=== PATIENT | male | born 1980 | race Caucasian/White ===

== ENCOUNTER 2021-01-29 14:34 | Inpatient (IN) | payer MEDICAID, OTHER ==
[~2021-01-29] VITALS: Ht 185.4 cm; Wt 228.0 kg
[~2021-01-29 14:34] MED LIST: AMIO200T6 PO; DILT60TA36 PO; FURO-151 PO; HYDR-4172 PO; LISI-809 PO; METF-444 PO
[2021-01-29] MEDS ORDERED: SODIUM CHLORIDE 0.9% 1,000 ML IV ONE (14:45)
[2021-01-29] MEDS ORDERED: METO-408 PO (15:26)
[2021-01-29 15:31] LABS: GLUCOSE,POINT OF CARE 459 MG/DL (70-110)
[2021-01-29 15:43] LABS: HEMATOCRIT 53.7 % (41-53); HEMOGLOBIN 17.7 g/dL (13.5-17.5); MEAN CORPUSCULAR HEMOGLOBIN 31.7 pg (26.0-34.0); MEAN CORPUSCULAR VOLUME 96 fL (80-100); PLATELET COUNT (AUTO) 165 K/uL (150-450); RED BLOOD CELL COUNT(AUTO) 5.59 MIL/uL (4.50-5.90); RED CELL DISTRIBUTION WIDTH 14.6 % (11.5-14.5)
[2021-01-29] MEDS ORDERED: VANCOMYCIN HCL 1 GM/D5% WATER 200 ML IV ONE (15:45)
[2021-01-29 16:15] LABS: LACTIC ACID 3.5 mmol/L (0.4-2.0)
[2021-01-29 16:16] LABS: ALBUMIN 3.1 g/dL (3.4-5.0); BILIRUBIN,TOTAL 4.8 mg/dL (0.1-1.0); CALCIUM, TOTAL 9.1 mg/dL (8.8-10.5); CREATININE 1.99 mg/dL (0.60-1.30); POTASSIUM 5.3 mmol/L (3.5-5.1); TOTAL PROTEIN, SERUM 7.8 g/dL (6.4-8.2)
[2021-01-29 16:18] LABS: BAND NEUTROPHILS % (MANUAL) 13 % (0-5); LYMPHOCYTES % (MANUAL) 6 % (22-44); MONOCYTES % (MANUAL) 7 % (2-9)
[2021-01-29 16:19] LABS: SEGMENTED NEUTROPHILS % 74 % (40-70)
[2021-01-29 16:20] LABS: ABG A-A DIFF O2 160.3 mmHg (10-20.0); ABG HCO3 22.4 mmol/L (22.0-26.0); ABG METHEMOGLOBIN 0.4 % (0.0-1.5); ABG OXYGEN CONTENT 25.3 mL/dL (15.0-23.0); ABG OXYGEN SATURATION 95.2 % (95.0-98.0); ABG OXYHEMOGLOBIN 94.8 % (94.0-100.0); ABG PCO2 40 mmHg (35-45); PO2, ARTERIAL BG 79.1 mmHg (88.0-96.0); SITE, BLOOD GAS RT RADIAL; SOURCE, BLOOD GAS ARTERIAL; TEMPERATURE, FAHRENHEIT, BG 99.3 FAHREN (96.0-98.6)
[2021-01-29 16:21] LABS: O2 DEVICE,BLOOD GAS CANNULA (ROOM AIR)
[2021-01-29 17:11] LABS: COVID AG,FIA SOURCE NASOPHARYNGEAL
[2021-01-29 17:39] LABS: APPEARANCE,URINE CLOUDY (CLEAR); GLUCOSE, URINE (UA) >=1000 mg/dL (NEGATIVE); KETONES,URINE TRACE mg/dL (NEGATIVE); LEUKOCYTE ESTERASE ,URINE NEGATIVE (NEGATIVE); NITRATE,URINE NEGATIVE (NEGATIVE); OCCULT BLOOD,URINE MODERATE (NEGATIVE); PH,URINE 5.5 (5.0-8.0); PROTEIN,URINE SEE CONFIRM (NEGATIVE); UROBILINOGEN,URINE 0.2 mg/dL (<=1.0)
[2021-01-29 17:45] LABS: BILIRUBIN,URINE PRELIM. POSITIVE (NEGATIVE)
[2021-01-29] MEDS ORDERED: AMIODARONE HCL 50 MG/ML 3 ML VIAL IVP ONE (17:45)
[2021-01-29 17:47] LABS: BACTERIA,URINE Few /HPF (None Seen); SQUAMOUS EPITHELIAL CELL,UR Moderate /LPF (None Seen); SULFOSALICYLIC ACID,URINE 2+ (Negative); WBC,URINE 0-2 /HPF (0-5)
[2021-01-29] MEDS ORDERED: DEXTROSE 5% IV ONE (18:00)
[2021-01-29] MEDS ORDERED: AMIODARONE HCL 150 MG in DEXTROSE 5%-WATER 97 ML IV ONE (18:00)
[2021-01-29] MEDS ORDERED: AMIODARONE HCL 360 MG in DEXTROSE 5%-WATER 242.8 ML IV ONE (18:00)
[2021-01-29] MEDS ORDERED: AMIODARONE HCL IV ONE (18:00)
[2021-01-29] MEDS ORDERED: WATER IV ONE (18:00)
[2021-01-29] MEDS ORDERED: DIGOXIN 250 MCG/ML 2 ML AMP IVP ONE ×2 (18:15→19:45)
[2021-01-29] MEDS ORDERED: CefTRIAXone 1 GM/DEXTROSE 50 ML IV ONE (19:45)
[2021-01-29] MEDS ORDERED: ONDANSETRON HCL 4 MG/2 ML VIAL IVP PRN ×2 (20:00→21:00)
[2021-01-29] MEDS ORDERED: ACETAMINOPHEN 325 MG TABLET PO PRN (20:00)
[2021-01-29] MEDS ORDERED: 0.9% SODIUM CHLORIDE 10 ML SYRINGE IVP PRN (20:00)
[2021-01-29] MEDS ORDERED: VANCOMYCIN HCL 1.5 GM in DEXTROSE 5%-WATER 250 ML IV ONE (22:00)
[2021-01-29] MEDS ORDERED: MAGNESIUM SULFATE 2 GM/WATER 50 ML IV PRN (22:15)
[2021-01-29] MEDS ORDERED: MAGNESIUM SULFATE 4 GM/WATER 100 ML IV PRN (22:15)
[2021-01-29] MEDS ORDERED: MAGNESIUM OXIDE 400 MG TABLET PO PRN (22:15)
[2021-01-29] MEDS ORDERED: DEXTROSE 50%-WATER 25 GM/50 ML SYRINGE IVP PRN (22:30)
[2021-01-29 22:37] LABS: THYROID STIMULATING HORMONE 2.93 uIU/mL (0.36-3.74)
[2021-01-29] MEDS: METOPROLOL TARTRATE 5 MG/5 ML VIAL IVP SCH (22:38)
[2021-01-29] MEDS: INSULIN LISPRO 100 UNITS/ML SQ PRN (22:55)
[2021-01-29 23:03] LABS: GLUCOSE,POINT OF CARE 436 MG/DL (70-110)
[2021-01-30] MEDS ORDERED: AMIODARONE HCL 540 MG in DEXTROSE 5%-WATER 239.2 ML IV ONE ×2
[2021-01-30] MEDS: PIPERACILLIN/TAZO 3.375 GM/D5W 50 ML IV SCH ×2 (03:10→10:37)
[2021-01-30] MEDS ORDERED: INSULIN REGULAR, HUMAN 100 UNITS/ML SQ ONE (04:15)
[2021-01-30] MEDS ORDERED: INSULIN GLARGINE,HUM.REC.ANLOG 100 UNITS/ML SQ ONE (04:15)
[2021-01-30 04:44] LABS: GLUCOSE,POINT OF CARE 426 MG/DL (70-110)
[2021-01-30 05:40] LABS: BASOPHILS % (AUTO) 0.3 % (0.0-2.0); EOSINOPHILS % (AUTO) 0 % (1.0-6.0); HEMATOCRIT 52.8 % (41-53); HEMOGLOBIN 17.4 g/dL (13.5-17.5); LYMPHOCYTES # (AUTO) 0.5 K/uL (1.0-4.8); LYMPHOCYTES % (AUTO) 4.7 % (22.0-44.0); MEAN CORPUSCULAR HEMOGLOBIN 31.8 pg (26.0-34.0); MEAN CORPUSCULAR VOLUME 96 fL (80-100); MONOCYTES # (AUTO) 0.5 K/uL (0.1-1.0); MONOCYTES % (AUTO) 5.7 % (2.0-9.0); NEUTROPHILS # (AUTO) 8.5 K/uL (1.8-7.7); PLATELET COUNT (AUTO) 159 K/uL (150-450); RED BLOOD CELL COUNT(AUTO) 5.48 MIL/uL (4.50-5.90); RED CELL DISTRIBUTION WIDTH 14.5 % (11.5-14.5)
[2021-01-30 05:44] LABS: NEUTROPHILS % (AUTO) 89.3 % (40.0-70.0)
[2021-01-30 05:58] LABS: CALCIUM, TOTAL 9.1 mg/dL (8.8-10.5); CREATININE 1.67 mg/dL (0.60-1.30); DIGOXIN 0.74 ng/mL (0.90-2.00); MAGNESIUM 1.6 mg/dL (1.80-2.40); POTASSIUM 4.7 mmol/L (3.5-5.1)
[2021-01-30] MEDS: METOPROLOL TARTRATE 5 MG/5 ML VIAL IVP SCH ×4 (06:23→23:56)
[2021-01-30] MEDS: INSULIN LISPRO 100 UNITS/ML SQ PRN ×4 (06:40→23:00)
[2021-01-30 06:46] LABS: GLUCOSE,POINT OF CARE 390 MG/DL (70-110)
[2021-01-30] MEDS ORDERED: HEPARIN SODIUM,PORCINE 5,000 UNITS/ML VIAL IVP ONE (07:15)
[2021-01-30] MEDS ORDERED: HEPARIN SODIUM,PORCINE 5,000 UNITS/ML VIAL IVP PRN ×2 (07:15)
[2021-01-30] MEDS ORDERED: XAREL CHEW (07:17)
[2021-01-30] MEDS: VANCOMYCIN HCL 1.5 GM in DEXTROSE 5%-WATER 250 ML IV SCH ×2 (08:26→19:32)
[2021-01-30 10:36] LABS: INR 1.2 (0.9-1.1); PROTHROMBIN TIME 12.6 SEC (9.4-11.6)
[2021-01-30] MEDS: HEPARIN SODIUM 25000 UNITS/D5W 250 ML IV PRN (11:30)
[2021-01-30 11:53] LABS: GLUCOSE,POINT OF CARE 399 MG/DL (70-110)
[2021-01-30] MEDS: DILTIAZEM HCL 60 MG SR CAPSULE PO SCH ×2 (12:45→20:58)
[2021-01-30] MEDS ORDERED: RIVA20TA PO (12:56)
[2021-01-30] MEDS ORDERED: DIGOXIN 250 MCG/ML 2 ML AMP IVP ONE (13:00)
[2021-01-30] MEDS ORDERED: DILTIAZEM HCL 5 MG/ML 5 ML VIAL IVP ONE (13:00)
[2021-01-30] MEDS: FUROSEMIDE 40 MG/4 ML VIAL IVP SCH ×2 (14:21→20:59)
[2021-01-30] MEDS ORDERED: *CLINICAL-MEROPENEM DOSING CLINICAL ONE (14:45)
[2021-01-30] MEDS: MEROPENEM 1 GM in SODIUM CHLORIDE 0.9% 100 ML IV SCH ×2 (15:31→23:14)
[2021-01-30] MEDS: CLINDAMYCIN 900 MG/D5% WATER 50 ML IV SCH ×2 (16:31→23:56)
[2021-01-30 18:14] LABS: GLUCOSE,POINT OF CARE 346 MG/DL (70-110)
[2021-01-30] MEDS: AMIODARONE HCL 750 MG in DEXTROSE 5%-WATER 485 ML IV SCH (18:53)
[2021-01-30 21:00] VITALS: BP 139/79
[2021-01-30 21:08] LABS: C-REACTIVE PROTEIN QUANT 30.86 mg/dL (0.00-0.30)
[2021-01-30] MEDS: INSULIN GLARGINE,HUM.REC.ANLOG 100 UNITS/ML SQ SCH (22:57)
[2021-01-30 23:00] VITALS: BP 150/90
[2021-01-30 23:08] LABS: GLUCOSE,POINT OF CARE 370 MG/DL (70-110)
[2021-01-30 23:32] VITALS: BP 146/92
[2021-01-31] VITALS (15 sets, daily range): BP systolic 121–158; BP diastolic 68–108
[2021-01-31 04:23] LABS: BASOPHILS % (AUTO) 0.3 % (0.0-2.0); EOSINOPHILS % (AUTO) 0.2 % (1.0-6.0); HEMATOCRIT 52.3 % (41-53); HEMOGLOBIN 17.2 g/dL (13.5-17.5); LYMPHOCYTES # (AUTO) 0.5 K/uL (1.0-4.8); LYMPHOCYTES % (AUTO) 5.2 % (22.0-44.0); MEAN CORPUSCULAR HEMOGLOBIN 31.4 pg (26.0-34.0); MEAN CORPUSCULAR HGB CONC 32.8 G/dL (31.0-37.0); MEAN CORPUSCULAR VOLUME 96 fL (80-100); MONOCYTES # (AUTO) 0.7 K/uL (0.1-1.0); MONOCYTES % (AUTO) 7.2 % (2.0-9.0); NEUTROPHILS # (AUTO) 7.9 K/uL (1.8-7.7); NEUTROPHILS % (AUTO) 87.1 % (40.0-70.0); PLATELET COUNT (AUTO) 162 K/uL (150-450); RED BLOOD CELL COUNT(AUTO) 5.46 MIL/uL (4.50-5.90); RED CELL DISTRIBUTION WIDTH 14.2 % (11.5-14.5)
[2021-01-31 04:52] LABS: ALBUMIN 2.6 g/dL (3.4-5.0); BILIRUBIN,TOTAL 2.9 mg/dL (0.1-1.0); CALCIUM, TOTAL 9.2 mg/dL (8.8-10.5); CREATININE 1.51 mg/dL (0.60-1.30); MAGNESIUM 2.1 mg/dL (1.80-2.40); POTASSIUM 4.4 mmol/L (3.5-5.1); TOTAL PROTEIN, SERUM 7.5 g/dL (6.4-8.2); VANCOMYCIN,RANDOM 21.4 mcg/mL (25.0-50.0)
[2021-01-31 05:23] LABS: C-REACTIVE PROTEIN QUANT 24.94 mg/dL (0.00-0.30)
[2021-01-31] MEDS: METOPROLOL TARTRATE 5 MG/5 ML VIAL IVP SCH ×3 (05:59→18:21)
[2021-01-31] MEDS: INSULIN LISPRO 100 UNITS/ML SQ PRN ×3 (05:59→20:23)
[2021-01-31] MEDS: MEROPENEM 1 GM in SODIUM CHLORIDE 0.9% 100 ML IV SCH ×3 (06:21→23:02)
[2021-01-31 07:37] LABS: GLUCOSE,POINT OF CARE 370 MG/DL (70-110)
[2021-01-31] MEDS: CLINDAMYCIN 900 MG/D5% WATER 50 ML IV SCH ×2 (08:11→17:01)
[2021-01-31] MEDS ORDERED: ADENOSINE 3 MG/ML 2 ML VIAL IVP ONE (08:15)
[2021-01-31] MEDS ORDERED: DIGOXIN 250 MCG/ML 2 ML AMP IVP ONE (08:15)
[2021-01-31] MEDS: DILTIAZEM HCL 60 MG SR CAPSULE PO SCH ×2 (09:00→20:21)
[2021-01-31] MEDS ORDERED: DILTIAZEM HCL 5 MG/ML 5 ML VIAL IVP ONE (10:15)
[2021-01-31] MEDS: FUROSEMIDE 40 MG/4 ML VIAL IVP SCH ×2 (10:49→20:21)
[2021-01-31] MEDS: INSULIN GLARGINE,HUM.REC.ANLOG 100 UNITS/ML SQ SCH ×2 (10:54→20:22)
[2021-01-31 11:55] LABS: GLUCOSE,POINT OF CARE 365 MG/DL (70-110)
[2021-01-31] MEDS ORDERED: DILTIAZEM HCL 125 MG in DEXTROSE 5%-WATER 100 ML IV PRN (12:00)
[2021-01-31] MEDS ORDERED: SODIUM CHLORIDE 0.9% 250 ML IV ONE (12:40)
[2021-01-31] MEDS: VANCOMYCIN HCL 1.5 GM in DEXTROSE 5%-WATER 250 ML IV SCH ×2 (12:44→20:20)
[2021-01-31] MEDS ORDERED: AMIODARONE HCL 50 MG in DEXTROSE 5%-WATER 97 ML IV ONE (14:30)
[2021-01-31] MEDS ORDERED: MORPHINE SULFATE 2 MG/ML SYRINGE IVP ONE (14:45)
[2021-01-31] MEDS: SOTALOL HCL 80 MG TABLET PO SCH ×2 (14:51→20:20)
[2021-01-31 15:33] LABS: CREATININE,URINE RANDOM 29.3 mg/dL (30.0-125.0)
[2021-01-31] MEDS ORDERED: DEXTROSE 50%-WATER 25 GM/50 ML SYRINGE IVP PRN (15:45)
[2021-01-31] MEDS: AMIODARONE HCL 750 MG in DEXTROSE 5%-WATER 485 ML IV SCH (18:21)
[2021-01-31] MEDS: HEPARIN SODIUM 25000 UNITS/D5W 250 ML IV PRN (22:33)
[2021-02-01] VITALS (9 sets, daily range): BP systolic 110–146; BP diastolic 20–116
[2021-02-01] MEDS: METOPROLOL TARTRATE 5 MG/5 ML VIAL IVP SCH ×2 (00:52→06:15)
[2021-02-01] MEDS: CLINDAMYCIN 900 MG/D5% WATER 50 ML IV SCH ×3 (00:53→16:02)
[2021-02-01 00:54] LABS: GLUCOSE,POINT OF CARE 397 MG/DL (70-110)
[2021-02-01] MEDS: ACETAMINOPHEN 325 MG TABLET PO PRN (01:08)
[2021-02-01] MEDS: MORPHINE SULFATE 4 MG/ML SYRINGE IVP PRN ×3 (02:48→13:03)
[2021-02-01 03:09] LABS: GLUCOSE,POINT OF CARE 388 MG/DL (70-110)
[2021-02-01 06:13] LABS: BASOPHILS % (AUTO) 0.7 % (0.0-2.0); EOSINOPHILS % (AUTO) 0.2 % (1.0-6.0); HEMATOCRIT 50.5 % (41-53); HEMOGLOBIN 16.8 g/dL (13.5-17.5); LYMPHOCYTES # (AUTO) 0.5 K/uL (1.0-4.8); MEAN CORPUSCULAR HEMOGLOBIN 31.8 pg (26.0-34.0); MEAN CORPUSCULAR HGB CONC 33.3 G/dL (31.0-37.0); MEAN CORPUSCULAR VOLUME 96 fL (80-100); MONOCYTES % (AUTO) 8.8 % (2.0-9.0); NEUTROPHILS # (AUTO) 9.7 K/uL (1.8-7.7); PLATELET COUNT (AUTO) 185 K/uL (150-450); RED BLOOD CELL COUNT(AUTO) 5.29 MIL/uL (4.50-5.90); RED CELL DISTRIBUTION WIDTH 14.4 % (11.5-14.5)
[2021-02-01] MEDS: MEROPENEM 1 GM in SODIUM CHLORIDE 0.9% 100 ML IV SCH ×3 (06:14→23:40)
[2021-02-01] MEDS: HEPARIN SODIUM 25000 UNITS/D5W 250 ML IV PRN ×2 (06:15→16:53)
[2021-02-01] MEDS: INSULIN LISPRO 100 UNITS/ML SQ PRN ×4 (06:16→20:54)
[2021-02-01 06:39] LABS: ALBUMIN 2.2 g/dL (3.4-5.0); BILIRUBIN,TOTAL 2.9 mg/dL (0.1-1.0); CALCIUM, TOTAL 9.1 mg/dL (8.8-10.5); CREATININE 1.38 mg/dL (0.60-1.30); MAGNESIUM 2.2 mg/dL (1.80-2.40); POTASSIUM 4.2 mmol/L (3.5-5.1); TOTAL PROTEIN, SERUM 7.4 g/dL (6.4-8.2)
[2021-02-01 06:53] LABS: GLUCOSE,POINT OF CARE 324 MG/DL (70-110)
[2021-02-01 07:40] LABS: NEUTROPHILS % (AUTO) 86.3 % (40.0-70.0)
[2021-02-01] MEDS: FUROSEMIDE 40 MG/4 ML VIAL IVP SCH ×2 (08:15→20:55)
[2021-02-01] MEDS: DILTIAZEM HCL 60 MG SR CAPSULE PO SCH ×2 (08:15→20:56)
[2021-02-01] MEDS: SOTALOL HCL 80 MG TABLET PO SCH ×2 (08:15→20:56)
[2021-02-01] MEDS: INSULIN GLARGINE,HUM.REC.ANLOG 100 UNITS/ML SQ SCH ×2 (08:18→20:55)
[2021-02-01] MEDS: METOPROLOL SUCCINATE 50 MG ER TABLET PO SCH ×3 (08:19→17:45)
[2021-02-01 08:51] LABS: DIGOXIN 0.82 ng/mL (0.90-2.00)
[2021-02-01] MEDS: VANCOMYCIN HCL 1.5 GM in DEXTROSE 5%-WATER 250 ML IV SCH ×2 (09:17→20:22)
[2021-02-01] MEDS: AMIODARONE HCL 200 MG TABLET PO SCH ×3 (09:55→20:56)
[2021-02-01] MEDS ORDERED: ETOMIDATE 2 MG/ML 10 ML VIAL ONE (10:06)
[2021-02-01] MEDS ORDERED: DIGOXIN 250 MCG/ML 2 ML AMP IVP ONE (10:15)
[2021-02-01] MEDS ORDERED: PROPOFOL 1000 MG/ISO-OSM 100 ML IV ONE (10:21)
[2021-02-01] MEDS ORDERED: FentaNYL CITRATE PF 100 MCG/2 ML VIAL ONE (10:24)
[2021-02-01] MEDS ORDERED: FentaNYL CIT 1000MCG/D5%-WATER 100 ML IV ONE (10:32)
[2021-02-01] MEDS ORDERED: HEPARIN SODIUM,PORCINE 1,000 UNITS/ML VIAL ONE (10:58)
[2021-02-01 11:53] LABS: GLUCOSE,POINT OF CARE 358 MG/DL (70-110)
[2021-02-01 14:21] LABS: GLUCOSE,POINT OF CARE 394 MG/DL (70-110)
[2021-02-01] MEDS: AMIODARONE HCL 750 MG in DEXTROSE 5%-WATER 485 ML IV SCH (17:45)
[2021-02-01] MEDS ORDERED: INSULIN GLARGINE,HUM.REC.ANLOG 100 UNITS/ML SQ ONE (18:00)
[2021-02-01 20:45] LABS: GLUCOSE,POINT OF CARE 365 MG/DL (70-110)
[2021-02-01 21:36] LABS: GLUCOSE,POINT OF CARE 417 MG/DL (70-110)
[2021-02-02] VITALS: BP 128/66
[2021-02-02] MEDS: METOPROLOL SUCCINATE 50 MG ER TABLET PO SCH ×4 (00:22→17:40)
[2021-02-02] MEDS: CLINDAMYCIN 900 MG/D5% WATER 50 ML IV SCH ×3 (00:22→16:34)
[2021-02-02 04:00] VITALS: BP 124/67
[2021-02-02] MEDS: HEPARIN SODIUM 25000 UNITS/D5W 250 ML IV PRN (04:49)
[2021-02-02] MEDS: MEROPENEM 1 GM in SODIUM CHLORIDE 0.9% 100 ML IV SCH ×3 (06:38→22:23)
[2021-02-02] MEDS: INSULIN LISPRO 100 UNITS/ML SQ PRN ×3 (06:51→17:40)
[2021-02-02 06:58] LABS: GLUCOSE,POINT OF CARE 362 MG/DL (70-110)
[2021-02-02 07:21] LABS: BASOPHILS % (AUTO) 0.6 % (0.0-2.0); EOSINOPHILS % (AUTO) 0.2 % (1.0-6.0); HEMOGLOBIN 16.8 g/dL (13.5-17.5); LYMPHOCYTES # (AUTO) 0.6 K/uL (1.0-4.8); LYMPHOCYTES % (AUTO) 4.1 % (22.0-44.0); MEAN CORPUSCULAR HGB CONC 33.5 G/dL (31.0-37.0); MEAN CORPUSCULAR VOLUME 96 fL (80-100); MONOCYTES # (AUTO) 1.1 K/uL (0.1-1.0); NEUTROPHILS # (AUTO) 13.3 K/uL (1.8-7.7); PLATELET COUNT (AUTO) 217 K/uL (150-450); RED BLOOD CELL COUNT(AUTO) 5.23 MIL/uL (4.50-5.90)
[2021-02-02 07:27] LABS: NEUTROPHILS % (AUTO) 88.1 % (40.0-70.0)
[2021-02-02 07:45] LABS: ALANINE AMINOTRANSFERASE 21 U/L (12-78); ALKALINE PHOSPHATASE 94 U/L (46-116); ANION GAP 9 mmol/L (8-16); ASPARTATE AMINOTRANSFERASE 52 U/L (15-37); BILIRUBIN,TOTAL 2.5 mg/dL (0.1-1.0); CALCIUM, TOTAL 9.4 mg/dL (8.8-10.5); CARBON DIOXIDE 28 mmol/L (22-29); CHLORIDE 94 mmol/L (98-107); CREATININE 1.29 mg/dL (0.60-1.30); GLOMERULAR FILTR. RATE CALC > 60 mL/min (>60); GLUCOSE,RANDOM 331 mg/dL (70-110); POTASSIUM 4.1 mmol/L (3.5-5.1); SODIUM SERUM 131 mmol/L (136-145); TOTAL PROTEIN, SERUM 7.4 g/dL (6.4-8.2); UREA NITROGEN, BLOOD 35 mg/dL (7-18)
[2021-02-02 08:00] VITALS: BP 124/77
[2021-02-02] MEDS: SOTALOL HCL 80 MG TABLET PO SCH (08:18)
[2021-02-02] MEDS: ACETAMINOPHEN 325 MG TABLET PO PRN ×2 (08:19→12:32)
[2021-02-02] MEDS: DILTIAZEM HCL 60 MG SR CAPSULE PO SCH ×2 (08:19→21:24)
[2021-02-02] MEDS: FUROSEMIDE 40 MG/4 ML VIAL IVP SCH ×2 (08:19→21:21)
[2021-02-02] MEDS: AMIODARONE HCL 200 MG TABLET PO SCH ×3 (08:19→21:24)
[2021-02-02] MEDS: APIXABAN 5 MG TABLET PO SCH ×2 (08:22→21:24)
[2021-02-02] MEDS: INSULIN GLARGINE,HUM.REC.ANLOG 100 UNITS/ML SQ SCH ×2 (08:23→21:26)
[2021-02-02] MEDS: VANCOMYCIN HCL 1.5 GM in DEXTROSE 5%-WATER 250 ML IV SCH ×2 (09:11→20:39)
[2021-02-02 12:00] VITALS: BP 104/70
[2021-02-02 12:49] LABS: GLUCOSE,POINT OF CARE 356 MG/DL (70-110)
[2021-02-02] MEDS ORDERED: SODIUM CHLORIDE 0.9% 250 ML IV ONE ×2 (14:14→16:40)
[2021-02-02 16:00] VITALS: BP 105/43
[2021-02-02] MEDS: AMIODARONE HCL 750 MG in DEXTROSE 5%-WATER 485 ML IV SCH (17:39)
[2021-02-02 20:00] VITALS: BP 119/69
[2021-02-02 21:19] LABS: GLUCOSE,POINT OF CARE 368 MG/DL (70-110)
[2021-02-02 21:23] LABS: GLUCOSE,POINT OF CARE 432 MG/DL (70-110)
[2021-02-02] MEDS ORDERED: INSULIN REGULAR, HUMAN 100 UNITS/ML SQ ONE (22:00)
[2021-02-03] VITALS: BP 102/58
[2021-02-03] MEDS ORDERED: INSULIN GLARGINE,HUM.REC.ANLOG 100 UNITS/ML SQ ONE
[2021-02-03] MEDS ORDERED: INSULIN LISPRO 100 UNITS/ML SQ ONE
[2021-02-03 00:03] LABS: GLUCOSE,POINT OF CARE 381 MG/DL (70-110)
[2021-02-03] MEDS: CLINDAMYCIN 900 MG/D5% WATER 50 ML IV SCH ×4 (00:23→23:18)
[2021-02-03] MEDS: METOPROLOL SUCCINATE 50 MG ER TABLET PO SCH ×5 (00:24→23:18)
[2021-02-03 04:00] VITALS: BP 112/83
[2021-02-03] MEDS: MEROPENEM 1 GM in SODIUM CHLORIDE 0.9% 100 ML IV SCH ×3 (05:55→23:18)
[2021-02-03 06:31] LABS: HEMATOCRIT 49.7 % (41-53); HEMOGLOBIN 16.4 g/dL (13.5-17.5); MEAN CORPUSCULAR HEMOGLOBIN 31.4 pg (26.0-34.0); MEAN CORPUSCULAR HGB CONC 32.9 G/dL (31.0-37.0); MEAN CORPUSCULAR VOLUME 95 fL (80-100); PLATELET COUNT (AUTO) 273 K/uL (150-450); RED BLOOD CELL COUNT(AUTO) 5.22 MIL/uL (4.50-5.90); RED CELL DISTRIBUTION WIDTH 14.6 % (11.5-14.5)
[2021-02-03] MEDS: INSULIN LISPRO 100 UNITS/ML SQ PRN ×5 (06:35→23:29)
[2021-02-03 06:37] LABS: BAND NEUTROPHILS % (MANUAL) 0 % (0-5)
[2021-02-03 06:42] LABS: ALBUMIN 1.9 g/dL (3.4-5.0); BILIRUBIN,TOTAL 1.8 mg/dL (0.1-1.0); CALCIUM, TOTAL 9.2 mg/dL (8.8-10.5); CREATININE 1.36 mg/dL (0.60-1.30); POTASSIUM 4.2 mmol/L (3.5-5.1); TOTAL PROTEIN, SERUM 7.5 g/dL (6.4-8.2); VANCOMYCIN,RANDOM 21.9 mcg/mL (25.0-50.0)
[2021-02-03 07:03] LABS: LYMPHOCYTES % (MANUAL) 10 % (22-44); MONOCYTES % (MANUAL) 7 % (2-9); SEGMENTED NEUTROPHILS % 83 % (40-70)
[2021-02-03 07:54] LABS: GLUCOSE,POINT OF CARE 317 MG/DL (70-110)
[2021-02-03 08:00] VITALS: BP 108/56
[2021-02-03] MEDS: DILTIAZEM HCL 60 MG SR CAPSULE PO SCH ×2 (08:12→19:49)
[2021-02-03] MEDS: AMIODARONE HCL 200 MG TABLET PO SCH ×3 (08:12→19:48)
[2021-02-03] MEDS: FUROSEMIDE 40 MG/4 ML VIAL IVP SCH ×2 (08:12→19:49)
[2021-02-03] MEDS: APIXABAN 5 MG TABLET PO SCH ×2 (08:12→19:49)
[2021-02-03] MEDS: VANCOMYCIN HCL 1.5 GM in DEXTROSE 5%-WATER 250 ML IV SCH ×2 (08:16→19:49)
[2021-02-03] MEDS ORDERED: INSULIN GLARGINE,HUM.REC.ANLOG 100 UNITS/ML SQ SCH ×2 (09:15→21:00)
[2021-02-03] MEDS: ACETAMINOPHEN 325 MG TABLET PO PRN (10:58)
[2021-02-03 12:00] VITALS: BP 116/52
[2021-02-03 12:48] LABS: GLUCOSE,POINT OF CARE 383 MG/DL (70-110)
[2021-02-03] MEDS ORDERED: LACTULOSE 20 GM/30 ML SOLUTION UDCUP PO PRN (15:00)
[2021-02-03 16:00] VITALS: BP 94/59
[2021-02-03 18:36] LABS: GLUCOSE,POINT OF CARE 352 MG/DL (70-110)
[2021-02-03 20:00] VITALS: BP 102/53
[2021-02-03] MEDS: INSULIN GLARGINE,HUM.REC.ANLOG 100 UNITS/ML SQ SCH (20:12)
[2021-02-03 21:10] LABS: GLUCOSE,POINT OF CARE 433 MG/DL (70-110)
[2021-02-04] VITALS (7 sets, daily range): BP systolic 118–140; BP diastolic 54–82
[2021-02-04 01:13] LABS: GLUCOSE,POINT OF CARE 395 MG/DL (70-110)
[2021-02-04] MEDS: INSULIN LISPRO 100 UNITS/ML SQ PRN ×4 (05:38→21:18)
[2021-02-04 05:46] LABS: HEMATOCRIT 48.7 % (41-53); HEMOGLOBIN 16.1 g/dL (13.5-17.5); MEAN CORPUSCULAR HEMOGLOBIN 31.7 pg (26.0-34.0); MEAN CORPUSCULAR VOLUME 96 fL (80-100); PLATELET COUNT (AUTO) 322 K/uL (150-450); RED BLOOD CELL COUNT(AUTO) 5.07 MIL/uL (4.50-5.90); RED CELL DISTRIBUTION WIDTH 14.1 % (11.5-14.5)
[2021-02-04 06:02] LABS: ALBUMIN 1.7 g/dL (3.4-5.0); BILIRUBIN,TOTAL 1.4 mg/dL (0.1-1.0); CALCIUM, TOTAL 9.3 mg/dL (8.8-10.5); CREATININE 1.35 mg/dL (0.60-1.30); MAGNESIUM 2.1 mg/dL (1.80-2.40); PHOSPHORUS 3.8 mg/dL (2.5-4.9); POTASSIUM 4.1 mmol/L (3.5-5.1); TOTAL PROTEIN, SERUM 7.2 g/dL (6.4-8.2)
[2021-02-04] MEDS: MEROPENEM 1 GM in SODIUM CHLORIDE 0.9% 100 ML IV SCH ×3 (06:09→22:44)
[2021-02-04] MEDS: METOPROLOL SUCCINATE 50 MG ER TABLET PO SCH ×3 (06:09→17:32)
[2021-02-04 07:00] LABS: BAND NEUTROPHILS % (MANUAL) 0 % (0-5)
[2021-02-04 07:01] LABS: EOSINOPHILS % (MANUAL) 1 % (1-6); LYMPHOCYTES % (MANUAL) 9 % (22-44); MONOCYTES % (MANUAL) 7 % (2-9); SEGMENTED NEUTROPHILS % 83 % (40-70)
[2021-02-04 07:17] LABS: GLUCOSE,POINT OF CARE 331 MG/DL (70-110)
[2021-02-04 08:05] LABS: DIGOXIN 0.74 ng/mL (0.90-2.00)
[2021-02-04] MEDS: MULTIVITAMINS WITH MINERALS, THERAPEUTIC TABLET PO SCH (08:49)
[2021-02-04] MEDS: FUROSEMIDE 40 MG/4 ML VIAL IVP SCH ×2 (08:49→21:10)
[2021-02-04] MEDS: VANCOMYCIN HCL 1.5 GM in DEXTROSE 5%-WATER 250 ML IV SCH ×2 (08:49→19:38)
[2021-02-04] MEDS: AMIODARONE HCL 200 MG TABLET PO SCH ×3 (08:50→21:09)
[2021-02-04] MEDS: APIXABAN 5 MG TABLET PO SCH ×2 (08:50→21:09)
[2021-02-04] MEDS: DILTIAZEM HCL 60 MG SR CAPSULE PO SCH (08:51)
[2021-02-04] MEDS: CLINDAMYCIN 900 MG/D5% WATER 50 ML IV SCH ×2 (08:51→15:32)
[2021-02-04] MEDS: INSULIN GLARGINE,HUM.REC.ANLOG 100 UNITS/ML SQ SCH ×2 (08:54→21:16)
[2021-02-04 14:30] LABS: GLUCOSE,POINT OF CARE 370 MG/DL (70-110)
[2021-02-04] MEDS: FLUCONAZOLE 400 MG/NACL ISOOSM 200 ML IV SCH (16:45)
[2021-02-04] MEDS ORDERED: SODIUM CHLORIDE 0.9% 500 ML IV ONE (19:47)
[2021-02-04] MEDS: DILTIAZEM HCL CD 120 MG ER CAPSULE PO SCH (22:43)
[2021-02-05] VITALS (7 sets, daily range): BP systolic 126–155; BP diastolic 66–98
[2021-02-05] MEDS: METOPROLOL SUCCINATE 50 MG ER TABLET PO SCH ×4 (00:29→17:45)
[2021-02-05 06:17] LABS: ALBUMIN 1.8 g/dL (3.4-5.0); ANION GAP 8 mmol/L (8-16); CALCIUM, TOTAL 9.3 mg/dL (8.8-10.5); CARBON DIOXIDE 28 mmol/L (22-29); CHLORIDE 98 mmol/L (98-107); CREATININE 1.22 mg/dL (0.60-1.30); GLOMERULAR FILTR. RATE CALC > 60 mL/min (>60); GLUCOSE,RANDOM 229 mg/dL (70-110); POTASSIUM 4.1 mmol/L (3.5-5.1); SODIUM SERUM 134 mmol/L (136-145); UREA NITROGEN, BLOOD 46 mg/dL (7-18); VANCOMYCIN,RANDOM 25.9 mcg/mL (25.0-50.0)
[2021-02-05] MEDS: INSULIN LISPRO 100 UNITS/ML SQ PRN ×4 (06:30→20:25)
[2021-02-05 07:27] LABS: GLUCOMETER DEV NAME(LOC) 5S.2B; GLUCOSE,POINT OF CARE 237 MG/DL (70-110)
[2021-02-05 07:27] LABS: GLUCOMETER DEV NAME(LOC) 5S.2B; GLUCOSE,POINT OF CARE 338 MG/DL (70-110)
[2021-02-05 07:27] LABS: GLUCOMETER DEV NAME(LOC) 5S.2B; GLUCOSE,POINT OF CARE 381 MG/DL (70-110)
[2021-02-05] MEDS: MEROPENEM 1 GM in SODIUM CHLORIDE 0.9% 100 ML IV SCH ×2 (07:45→14:26)
[2021-02-05] MEDS: DILTIAZEM HCL CD 120 MG ER CAPSULE PO SCH ×2 (07:50→20:19)
[2021-02-05] MEDS: APIXABAN 5 MG TABLET PO SCH ×2 (07:51→20:19)
[2021-02-05] MEDS: AMIODARONE HCL 200 MG TABLET PO SCH ×3 (07:51→20:19)
[2021-02-05] MEDS: MULTIVITAMINS WITH MINERALS, THERAPEUTIC TABLET PO SCH (07:51)
[2021-02-05] MEDS: FUROSEMIDE 40 MG/4 ML VIAL IVP SCH ×2 (07:52→20:19)
[2021-02-05] MEDS: INSULIN GLARGINE,HUM.REC.ANLOG 100 UNITS/ML SQ SCH ×2 (07:54→20:20)
[2021-02-05] MEDS: VANCOMYCIN HCL 1.5 GM in DEXTROSE 5%-WATER 250 ML IV SCH (07:55)
[2021-02-05 11:40] LABS: GLUCOMETER DEV NAME(LOC) 5S.2B; GLUCOSE,POINT OF CARE 246 MG/DL (70-110)
[2021-02-05 12:29] LABS: GLUCOMETER DEV NAME(LOC) 5S.1; GLUCOSE,POINT OF CARE 336 MG/DL (70-110)
[2021-02-05] MEDS: FLUCONAZOLE 400 MG/NACL ISOOSM 200 ML IV SCH (16:07)
[2021-02-05] MEDS: VANCOMYCIN HCL 1 GM/D5% WATER 200 ML IV SCH (20:19)
[2021-02-06] MEDS: METOPROLOL SUCCINATE 50 MG ER TABLET PO SCH ×6 (00:15→23:32)
[2021-02-06] MEDS: MEROPENEM 1 GM in SODIUM CHLORIDE 0.9% 100 ML IV SCH ×4 (00:15→23:20)
[2021-02-06 04:17] LABS: GLUCOMETER DEV NAME(LOC) 5S.2B; GLUCOSE,POINT OF CARE 362 MG/DL (70-110)
[2021-02-06 04:17] LABS: GLUCOMETER DEV NAME(LOC) 5S.2B; GLUCOSE,POINT OF CARE 261 MG/DL (70-110)
[2021-02-06 04:46] VITALS: BP 139/80
[2021-02-06 05:50] LABS: BASOPHILS % (AUTO) 0.4 % (0.0-2.0); EOSINOPHILS % (AUTO) 0.9 % (1.0-6.0); HEMATOCRIT 48.5 % (41-53); HEMOGLOBIN 15.9 g/dL (13.5-17.5); LYMPHOCYTES # (AUTO) 1.1 K/uL (1.0-4.8); LYMPHOCYTES % (AUTO) 8.4 % (22.0-44.0); MEAN CORPUSCULAR HEMOGLOBIN 31.1 pg (26.0-34.0); MEAN CORPUSCULAR HGB CONC 32.8 G/dL (31.0-37.0); MEAN CORPUSCULAR VOLUME 95 fL (80-100); MONOCYTES % (AUTO) 7.6 % (2.0-9.0); NEUTROPHILS # (AUTO) 10.6 K/uL (1.8-7.7); NEUTROPHILS % (AUTO) 82.7 % (40.0-70.0); PLATELET COUNT (AUTO) 380 K/uL (150-450); RED BLOOD CELL COUNT(AUTO) 5.11 MIL/uL (4.50-5.90); RED CELL DISTRIBUTION WIDTH 14.2 % (11.5-14.5)
[2021-02-06] MEDS: INSULIN LISPRO 100 UNITS/ML SQ PRN ×4 (05:57→20:18)
[2021-02-06 06:41] LABS: ANION GAP 7 mmol/L (8-16); CALCIUM, TOTAL 9.3 mg/dL (8.8-10.5); CARBON DIOXIDE 30 mmol/L (22-29); CHLORIDE 100 mmol/L (98-107); CREATININE 1.14 mg/dL (0.60-1.30); GLOMERULAR FILTR. RATE CALC > 60 mL/min (>60); GLUCOSE,RANDOM 189 mg/dL (70-110); POTASSIUM 4.3 mmol/L (3.5-5.1); SODIUM SERUM 137 mmol/L (136-145); UREA NITROGEN, BLOOD 42 mg/dL (7-18)
[2021-02-06 07:25] VITALS: BP 139/83
[2021-02-06] MEDS ORDERED: VANCOMYCIN HCL 1.25 GM in DEXTROSE 5%-WATER 250 ML IV SCH (08:00)
[2021-02-06] MEDS: VANCOMYCIN HCL 1 GM/D5% WATER 200 ML IV SCH ×2 (08:40→19:48)
[2021-02-06] MEDS: DILTIAZEM HCL CD 120 MG ER CAPSULE PO SCH ×2 (08:41→19:49)
[2021-02-06] MEDS: AMIODARONE HCL 200 MG TABLET PO SCH ×3 (08:41→19:49)
[2021-02-06] MEDS: APIXABAN 5 MG TABLET PO SCH ×2 (08:41→19:48)
[2021-02-06] MEDS: FUROSEMIDE 40 MG/4 ML VIAL IVP SCH ×2 (08:41→19:49)
[2021-02-06] MEDS: MULTIVITAMINS WITH MINERALS, THERAPEUTIC TABLET PO SCH (08:41)
[2021-02-06] MEDS: INSULIN GLARGINE,HUM.REC.ANLOG 100 UNITS/ML SQ SCH ×2 (08:43→20:18)
[2021-02-06 11:31] VITALS: BP 115/71
[2021-02-06 15:37] VITALS: BP 136/78
[2021-02-06 16:56] LABS: GLUCOMETER DEV NAME(LOC) 5S.1; GLUCOSE,POINT OF CARE 277 MG/DL (70-110)
[2021-02-06] MEDS: FLUCONAZOLE 400 MG/NACL ISOOSM 200 ML IV SCH (16:58)
[2021-02-06 17:26] LABS: GLUCOMETER DEV NAME(LOC) 5S.2B; GLUCOSE,POINT OF CARE 219 MG/DL (70-110)
[2021-02-06 17:27] LABS: GLUCOMETER DEV NAME(LOC) 5S.2B; GLUCOSE,POINT OF CARE 270 MG/DL (70-110)
[2021-02-06 19:26] VITALS: BP 141/75
[2021-02-06 23:24] VITALS: BP 128/74
[2021-02-07 04:29] VITALS: BP 127/78
[2021-02-07] MEDS: INSULIN LISPRO 100 UNITS/ML SQ PRN ×4 (05:30→19:43)
[2021-02-07] MEDS: METOPROLOL SUCCINATE 50 MG ER TABLET PO SCH ×4 (05:31→23:49)
[2021-02-07 05:33] LABS: GLUCOMETER DEV NAME(LOC) 5S.2B; GLUCOSE,POINT OF CARE 235 MG/DL (70-110)
[2021-02-07] MEDS: MEROPENEM 1 GM in SODIUM CHLORIDE 0.9% 100 ML IV SCH ×3 (05:56→23:44)
[2021-02-07 07:05] LABS: ANION GAP 4 mmol/L (8-16); CALCIUM, TOTAL 9.1 mg/dL (8.8-10.5); CARBON DIOXIDE 33 mmol/L (22-29); CHLORIDE 102 mmol/L (98-107); CREATININE 1.18 mg/dL (0.60-1.30); GLOMERULAR FILTR. RATE CALC > 60 mL/min (>60); GLUCOSE,RANDOM 209 mg/dL (70-110); POTASSIUM 4.5 mmol/L (3.5-5.1); SODIUM SERUM 139 mmol/L (136-145); UREA NITROGEN, BLOOD 35 mg/dL (7-18)
[2021-02-07 07:48] VITALS: BP 131/76
[2021-02-07] MEDS: AMIODARONE HCL 200 MG TABLET PO SCH ×4 (07:57→21:00)
[2021-02-07] MEDS: APIXABAN 5 MG TABLET PO SCH ×2 (07:57→19:39)
[2021-02-07] MEDS: DILTIAZEM HCL CD 120 MG ER CAPSULE PO SCH ×2 (07:58→19:39)
[2021-02-07] MEDS: FUROSEMIDE 40 MG/4 ML VIAL IVP SCH ×2 (07:58→19:40)
[2021-02-07] MEDS: MULTIVITAMINS WITH MINERALS, THERAPEUTIC TABLET PO SCH (07:58)
[2021-02-07] MEDS: VANCOMYCIN HCL 1 GM/D5% WATER 200 ML IV SCH ×2 (07:58→19:39)
[2021-02-07] MEDS: INSULIN GLARGINE,HUM.REC.ANLOG 100 UNITS/ML SQ SCH ×2 (08:00→19:42)
[2021-02-07 09:57] LABS: GLUCOMETER DEV NAME(LOC) 5S.1; GLUCOSE,POINT OF CARE 201 MG/DL (70-110)
[2021-02-07 15:16] LABS: GLUCOMETER DEV NAME(LOC) 5S.1; GLUCOSE,POINT OF CARE 327 MG/DL (70-110)
[2021-02-07 15:44] VITALS: BP 104/53
[2021-02-07] MEDS: FLUCONAZOLE 400 MG/NACL ISOOSM 200 ML IV SCH (16:35)
[2021-02-07 19:46] VITALS: BP 155/76
[2021-02-07 22:25] LABS: GLUCOMETER DEV NAME(LOC) 5S.2B; GLUCOSE,POINT OF CARE 196 MG/DL (70-110)
[2021-02-07 23:25] VITALS: BP 140/84
[2021-02-08 06:21] VITALS: BP 140/82
[2021-02-08] MEDS ORDERED: SODIUM CHLORIDE 0.9% 500 ML IV ONE (06:23)
[2021-02-08] MEDS: METOPROLOL SUCCINATE 50 MG ER TABLET PO SCH ×4 (06:24→23:42)
[2021-02-08] MEDS: MEROPENEM 1 GM in SODIUM CHLORIDE 0.9% 100 ML IV SCH ×3 (06:25→22:42)
[2021-02-08] MEDS: INSULIN LISPRO 100 UNITS/ML SQ PRN ×4 (06:32→20:36)
[2021-02-08 08:04] VITALS: BP 138/79
[2021-02-08] MEDS: MULTIVITAMINS WITH MINERALS, THERAPEUTIC TABLET PO SCH (08:20)
[2021-02-08] MEDS: VANCOMYCIN HCL 1 GM/D5% WATER 200 ML IV SCH ×2 (08:20→20:30)
[2021-02-08] MEDS: APIXABAN 5 MG TABLET PO SCH ×2 (08:20→20:31)
[2021-02-08] MEDS: FUROSEMIDE 40 MG/4 ML VIAL IVP SCH ×2 (08:20→20:30)
[2021-02-08] MEDS: AMIODARONE HCL 200 MG TABLET PO SCH ×2 (08:20→20:31)
[2021-02-08] MEDS: INSULIN GLARGINE,HUM.REC.ANLOG 100 UNITS/ML SQ SCH ×2 (08:23→20:35)
[2021-02-08 09:19] LABS: ALANINE AMINOTRANSFERASE 24 U/L (12-78); ALBUMIN 1.9 g/dL (3.4-5.0); ALKALINE PHOSPHATASE 114 U/L (46-116); ANION GAP 5 mmol/L (8-16); ASPARTATE AMINOTRANSFERASE 29 U/L (15-37); BILIRUBIN,TOTAL 1.2 mg/dL (0.1-1.0); CALCIUM, TOTAL 9.1 mg/dL (8.8-10.5); CARBON DIOXIDE 31 mmol/L (22-29); CHLORIDE 101 mmol/L (98-107); CREATININE 1.18 mg/dL (0.60-1.30); GLOMERULAR FILTR. RATE CALC > 60 mL/min (>60); GLUCOSE,RANDOM 240 mg/dL (70-110); POTASSIUM 4.6 mmol/L (3.5-5.1); SODIUM SERUM 137 mmol/L (136-145); TOTAL PROTEIN, SERUM 7.8 g/dL (6.4-8.2); UREA NITROGEN, BLOOD 32 mg/dL (7-18)
[2021-02-08 09:27] LABS: BASOPHILS % (AUTO) 0.6 % (0.0-2.0); EOSINOPHILS % (AUTO) 1.4 % (1.0-6.0); HEMATOCRIT 49.4 % (41-53); HEMOGLOBIN 16.4 g/dL (13.5-17.5); LYMPHOCYTES # (AUTO) 1.1 K/uL (1.0-4.8); LYMPHOCYTES % (AUTO) 10.5 % (22.0-44.0); MEAN CORPUSCULAR HEMOGLOBIN 31.6 pg (26.0-34.0); MEAN CORPUSCULAR HGB CONC 33.1 G/dL (31.0-37.0); MEAN CORPUSCULAR VOLUME 95 fL (80-100); MONOCYTES # (AUTO) 0.8 K/uL (0.1-1.0); MONOCYTES % (AUTO) 7.8 % (2.0-9.0); NEUTROPHILS # (AUTO) 8.2 K/uL (1.8-7.7); NEUTROPHILS % (AUTO) 79.7 % (40.0-70.0); PLATELET COUNT (AUTO) 384 K/uL (150-450); RED BLOOD CELL COUNT(AUTO) 5.18 MIL/uL (4.50-5.90); RED CELL DISTRIBUTION WIDTH 14.2 % (11.5-14.5)
[2021-02-08 11:30] VITALS: BP 114/73
[2021-02-08] MEDS: FLUCONAZOLE 400 MG/NACL ISOOSM 200 ML IV SCH (15:23)
[2021-02-08 15:41] VITALS: BP 111/73
[2021-02-08 17:51] LABS: GLUCOMETER DEV NAME(LOC) 5N.3; GLUCOSE,POINT OF CARE 292 MG/DL (70-110)
[2021-02-08 17:52] LABS: GLUCOMETER DEV NAME(LOC) 5N.3; GLUCOSE,POINT OF CARE 267 MG/DL (70-110)
[2021-02-08 17:52] LABS: GLUCOMETER DEV NAME(LOC) 5N.3; GLUCOSE,POINT OF CARE 198 MG/DL (70-110)
[2021-02-08 17:52] LABS: GLUCOMETER DEV NAME(LOC) 5S.1; GLUCOSE,POINT OF CARE 252 MG/DL (70-110)
[2021-02-08 20:39] VITALS: BP 129/78
[2021-02-09 00:28] VITALS: BP 144/83
[2021-02-09 02:51] LABS: GLUCOMETER DEV NAME(LOC) 5S.1; GLUCOSE,POINT OF CARE 236 MG/DL (70-110)
[2021-02-09 04:35] VITALS: BP 126/67
[2021-02-09 05:38] LABS: BASOPHILS % (AUTO) 0.8 % (0.0-2.0); EOSINOPHILS % (AUTO) 1.6 % (1.0-6.0); HEMATOCRIT 48.5 % (41-53); LYMPHOCYTES # (AUTO) 1.2 K/uL (1.0-4.8); LYMPHOCYTES % (AUTO) 13.7 % (22.0-44.0); MEAN CORPUSCULAR HEMOGLOBIN 31.4 pg (26.0-34.0); MEAN CORPUSCULAR VOLUME 95 fL (80-100); MONOCYTES # (AUTO) 0.8 K/uL (0.1-1.0); MONOCYTES % (AUTO) 8.7 % (2.0-9.0); NEUTROPHILS # (AUTO) 6.5 K/uL (1.8-7.7); NEUTROPHILS % (AUTO) 75.2 % (40.0-70.0); PLATELET COUNT (AUTO) 403 K/uL (150-450); RED CELL DISTRIBUTION WIDTH 14.1 % (11.5-14.5)
[2021-02-09] MEDS: METOPROLOL SUCCINATE 50 MG ER TABLET PO SCH ×2 (05:52→11:56)
[2021-02-09] MEDS: INSULIN LISPRO 100 UNITS/ML SQ PRN ×2 (05:53→12:04)
[2021-02-09] MEDS: MEROPENEM 1 GM in SODIUM CHLORIDE 0.9% 100 ML IV SCH ×2 (06:00→14:19)
[2021-02-09 06:02] LABS: ALANINE AMINOTRANSFERASE 24 U/L (12-78); ALBUMIN 1.9 g/dL (3.4-5.0); ALKALINE PHOSPHATASE 106 U/L (46-116); ANION GAP 5 mmol/L (8-16); ASPARTATE AMINOTRANSFERASE 31 U/L (15-37); BILIRUBIN,TOTAL 1.5 mg/dL (0.1-1.0); CALCIUM, TOTAL 9.1 mg/dL (8.8-10.5); CARBON DIOXIDE 31 mmol/L (22-29); CHLORIDE 101 mmol/L (98-107); CREATININE 1.04 mg/dL (0.60-1.30); GLOMERULAR FILTR. RATE CALC > 60 mL/min (>60); GLUCOSE,RANDOM 196 mg/dL (70-110); POTASSIUM 4.4 mmol/L (3.5-5.1); SODIUM SERUM 137 mmol/L (136-145); TOTAL PROTEIN, SERUM 7.7 g/dL (6.4-8.2); UREA NITROGEN, BLOOD 32 mg/dL (7-18)
[2021-02-09 07:28] VITALS: BP 102/72
[2021-02-09] MEDS: VANCOMYCIN HCL 1 GM/D5% WATER 200 ML IV SCH (08:51)
[2021-02-09] MEDS: FUROSEMIDE 40 MG/4 ML VIAL IVP SCH (08:52)
[2021-02-09] MEDS: APIXABAN 5 MG TABLET PO SCH (08:52)
[2021-02-09] MEDS: MULTIVITAMINS WITH MINERALS, THERAPEUTIC TABLET PO SCH (08:52)
[2021-02-09] MEDS: AMIODARONE HCL 200 MG TABLET PO SCH (08:52)
[2021-02-09] MEDS: INSULIN GLARGINE,HUM.REC.ANLOG 100 UNITS/ML SQ SCH (09:02)
[2021-02-09 11:49] VITALS: BP 123/75
[2021-02-09] MEDS ORDERED: PERFLUTREN PROTEIN-A MICROSPHERES 0.22 MG/ML 3 ML VIAL IVP ONE (15:15)
[2021-02-09 15:21] VITALS: BP 122/76
[2021-02-09] MEDS ORDERED: CASPOFUNGIN ACETATE 70 MG in SODIUM CHLORIDE 0.9% 250 ML IV ONE (16:00)
[2021-02-09 17:27] LABS: GLUCOMETER DEV NAME(LOC) 5N.3; GLUCOSE,POINT OF CARE 210 MG/DL (70-110)
[2021-02-10 00:41] LABS: GLUCOMETER DEV NAME(LOC) 5S.1; GLUCOSE,POINT OF CARE 268 MG/DL (70-110)
[2021-02-10 00:41] LABS: GLUCOMETER DEV NAME(LOC) 5S.1; GLUCOSE,POINT OF CARE 292 MG/DL (70-110)
[2021-02-10] MEDS ORDERED: CASPOFUNGIN ACETATE 50 MG in SODIUM CHLORIDE 0.9% 250 ML IV SCH (16:00)
== END 2021-02-09 18:00 | DRG 720 ==
LOC: EMS 14:37 → 5N 01-30 07:38 → AHU 01-30 13:51 → ICU 01-31 09:58 → 5S 02-04 13:50
PROVIDERS: ADMIT Internal Medicine; ATTEND Internal Medicine
PROC: 5A1935Z Respiratory Ventilation, Less than 24 Consecutive Hours (ICD-10-PCS; 2021-01-31)
PROC: 02HV33Z Insertion of Infusion Device into Superior Vena Cava, Percutaneous Approach (ICD-10-PCS; 2021-01-31)
PROC: B548ZZA Ultrasonography of Superior Vena Cava, Guidance (ICD-10-PCS; 2021-01-31)
PROC: 0BH17EZ Insertion of Endotracheal Airway into Trachea, Via Natural or Artificial Opening (ICD-10-PCS; 2021-01-31)
PROC: 5A09357 Assistance with Respiratory Ventilation, Less than 24 Consecutive Hours, Continuous Positive Airway Pressure (ICD-10-PCS; principal; 2021-02-04)
PROC: 5A09357 Assistance with Respiratory Ventilation, Less than 24 Consecutive Hours, Continuous Positive Airway Pressure (ICD-10-PCS; 2021-02-05)
PROC: 5A09357 Assistance with Respiratory Ventilation, Less than 24 Consecutive Hours, Continuous Positive Airway Pressure (ICD-10-PCS; 2021-02-06)
PROC: 5A09357 Assistance with Respiratory Ventilation, Less than 24 Consecutive Hours, Continuous Positive Airway Pressure (ICD-10-PCS; 2021-02-07)
DX: A41.9 Sepsis, unspecified organism (principal); J96.01 Acute respiratory failure with hypoxia; J96.02 Acute respiratory failure with hypercapnia; E66.2 Morbid (severe) obesity with alveolar hypoventilation; I47.1 Supraventricular tachycardia; E11.65 Type 2 diabetes mellitus with hyperglycemia; E87.2 Acidosis; N17.9 Acute kidney failure, unspecified; E87.1 Hypo-osmolality and hyponatremia; L03.115 Cellulitis of right lower limb; L03.116 Cellulitis of left lower limb; I48.0 Paroxysmal atrial fibrillation; E44.0 Moderate protein-calorie malnutrition; I25.10 Atherosclerotic heart disease of native coronary artery without angina pectoris; I48.92 Unspecified atrial flutter; N18.9 Chronic kidney disease, unspecified; I13.0 Hypertensive heart and chronic kidney disease with heart failure and stage 1 through stage 4 chronic kidney disease, or unspecified chronic kidney disease; E78.5 Hyperlipidemia, unspecified; I50.43 Acute on chronic combined systolic (congestive) and diastolic (congestive) heart failure; J18.9 Pneumonia, unspecified organism; I87.2 Venous insufficiency (chronic) (peripheral); E11.22 Type 2 diabetes mellitus with diabetic chronic kidney disease; M72.6 Necrotizing fasciitis; Z20.822 Contact with and (suspected) exposure to COVID-19; Z86.73 Personal history of transient ischemic attack (TIA), and cerebral infarction without residual deficits; Z68.44 Body mass index [BMI] 60.0-69.9, adult; Z79.899 Other long term (current) drug therapy; Z79.4 Long term (current) use of insulin; Z79.01 Long term (current) use of anticoagulants
CPT/HCPCS: 36600; 73552; 76770; 82043; 82570; 82805; 82948; 83605; 83735; 84100; 84145; 84156; 84300; 84443; 84540; 86140; 87040; 87070; 87081; 87205; 87426; 93005; 93306; 93970; 94660; 97162; 97530; 99291; 99292; A9575; C8924; G0378; J0153; J0282; J0637; J0696; J1160; J1450; J1644; J1815; J1940; J2185; J2270; J2543; J2704; J3010; J3370; J3475; J3490; J7030; J7040; J7050; J7060; 36415-L1; 36415-TC; 71045-TC; 80162-TC; 80202-TC; U0003